=== PATIENT | female | born 1950 | race Caucasian/White ===

== ENCOUNTER → 2019-02-09 08:45 | Outpatient (CLI) | payer MEDICARE, SELFPAY ==
[2019-02-09 09:35] LABS: Add Manual Diff / Slide Review NO; Basophils Absolute Auto 0 /uL (0-100); Basophils Percent Auto 0.8 % (0-2); Eosinophils Absolute Auto 100 /uL (0-450); Eosinophils Percent Auto 1.7 % (2-4); Hematocrit 40.5 % (36-46); Hemoglobin 13.7 g/dL (12.0-16.0); Lymphocytes Absolute Auto 800 /uL (1100-4500); Lymphocytes Percent Auto 18.9 % (25-40); Mean Corpuscular HGB Conc 33.9 % (30-36); Mean Corpuscular Volume 91.5 fL (80-100); Monocytes Absolute Auto 400 /uL (0-900); Monocytes Percent Auto 10.4 % (3-14); Neutrophils Absolute Auto 2900 /uL (1500-7000); Neutrophils Percent Auto 68.2 % (50-75); Platelet Count 184 X10^3/uL (150-400); Red Blood Cell Count 4.42 X10^6/uL (4.0-5.2); Red Cell Distribution Width 13.9 % (11.6-14.8); White Blood Cell Count 4.3 X10^3/uL (4.5-11.0)
[2019-02-09 09:46] LABS: Alanine Aminotransferase 18 IU/L (9-52); Albumin 4.2 g/dL (3.5-5.0); Albumin Globulin Ratio 1.5 (1.0-2.8); Alkaline Phosphatase 73 U/L (38-126); Aspartate Aminotransferase 21 IU/L (14-36); BUN Creatinine Ratio 26.7 (6-22); Bilirubin Total 0.6 mg/dL (0.2-1.3); Blood Urea Nitrogen 24 mg/dL (7-17); Calcium 9.5 mg/dL (8.4-10.2); Carbon Dioxide 29 mmol/L (22-32); Chloride 106 mmol/L (98-107); Cholesterol 200 mg/dL (140-199); Estimated Glomerular Filt Rate > 60.0 mL/min (>60); Globulin 2.8 g/dL (1.7-4.1); Glucose 88 mg/dL (80-110); HDL Cholesterol 52 mg/dL (40-60); HEMOLYSIS 15 (0-50); LDL Cholesterol Calculated 131 mg/dL (<100); Potassium 4.1 mmol/L (3.4-5.1); Sodium 142 mmol/L (137-145); Triglycerides 84 mg/dL (35-150)
== END ==
PROVIDERS: Visit Provider Internal Medicine
DX: C50.111 Malignant neoplasm of central portion of right female breast (principal); H44.5 Degenerated conditions of globe; E66.9 Obesity, unspecified
CPT/HCPCS: 36415; 80053; 80061; 85025

== ENCOUNTER → 2019-02-23 14:03 | Outpatient (CLI) | payer MEDICARE, SELFPAY | PROVIDERS: PCP Internal Medicine | DX: M85.851 Other specified disorders of bone density and structure, right thigh (principal); C50.919 Malignant neoplasm of unspecified site of unspecified female breast; Z79.811 Long term (current) use of aromatase inhibitors; Z82.62 Family history of osteoporosis | CPT/HCPCS: 77080 ==

== ENCOUNTER 2019-03-14 10:27 | Day surgery (SDC) | payer MEDICARE, SELFPAY ==
[2019-03-14 11:03] VITALS: BP 132/81; PULSE 58; RESP 16; TEMP 36.7; O2SAT 97; BMI 31.0
--- NOTE | 2019-03-14 11:22 | PM.HP.1 ---
History of Present Illness Chief complaint: [id number] Patient History Social History household members: spouse Family & Social History Social History: household members spouse Meds Home Medications Medication Instructions Recorded Confirmed Type Combigan 01/30/19 History anastrozole 1 mg PO DAILY 01/30/19 03/14/19 History travoprost [Travatan Z] 01/30/19 History Allergies Allergy/AdvReac Type Severity Reaction Status Date / Time No Known Drug Allergies Allergy Verified 03/14/19 10:52 Review of Systems Review of Systems All systems reviewed & are unremarkable except as noted in HPI and below Exam Vital Signs (past 8 hours): - 03/14/19 11:03 Temperature 98.1 F Pulse Rate 58 L Respiratory Rate 16 Blood Pressure 132/81 Pulse Oximetry 97 Oxygen Delivery Method Room Air Narrative Exam Narrative: Awake alert and oriented x3, pupils reactive, lungs clear, heart regular rate rhythm, abdomen nondistended, no lower extremity edema Assessment & Plan Assessment & Plan narrative: Colon cancer screening, colonoscopy
[2019-03-14] MEDS: SODIUM CHLORIDE 0.9% 1,000 ML 200 ML IV (11:30)
[2019-03-14] MEDS: MIDAZOLAM 5 MG/5 ML VIAL IV (12:27)
[2019-03-14] MEDS: fentaNYL 250 MCG/5 ML INJ IV (12:28)
[2019-03-14 12:34] VITALS: BP 130/72; PULSE 65; RESP 14; TEMP 36.3; O2SAT 99
[2019-03-14 12:39] VITALS: BP 139/67; PULSE 62; RESP 20; O2SAT 97
--- NOTE | 2019-03-14 12:40 | P.OP.ENDO_ITS ---
Operative Date/Time/Diagnoses Date of procedure: 03/14/19 Procedure & Clinicians Study performed: Colonoscopy Moderate conscious sedation was administered by the endoscopy nurse and supervised by the endoscopist. The following parameters were monitored: Oxygen saturation, heart rate, blood pressure, and response to care. Sedation: 3 mg midazolam, 50 micro g fentanyl Indications: Colon cancer screening. Last colonoscopy done in 2008 Procedure Notes Procedure in detail: Prior to the procedure, history and physical was performed, and patient medications and allergies were reviewed. Preprocedure nursing history and assessment was reviewed. Patient identification and proposed procedure were verified by the physician and nurse in the procedure room. The p hysical status of the patient was reassessed after the procedure. After informed consent was obtained including risks, benefits, and alternatives, the scope was passed under direct vision. Throughout the procedure, the patient's blood pressure, pulse, and oxygen saturations were monitored continuously. The colonoscope was introduced through the anus and advanced to the cecum as identified by the appendiceal orifice and ileocecal valve. The patient tolerated the procedure well. Bowel prep was deemed adequate to detect polyps greater than 5 mm. DARRIN and perianal examinations were unremarkable. Retroflexion in the rectum revealed grade 2 internal hemorrhoids The entire examined colon was normal appearing. Impression: Internal hemorrhoids Colon otherwise normal-appearing No specimens taken Sedation minutes: 15 Complications: none Plan for aftercare: Repeat colonoscopy in 10 years Resume home medications Resume previous diet Discharge home with escort
[2019-03-14 12:43] VITALS: BP 139/76; PULSE 61; RESP 18; TEMP 36.8; O2SAT 97
[2019-03-14 13:00] VITALS: BP 130/70; PULSE 66; RESP 16; TEMP 36.6; O2SAT 99
== END 2019-03-14 13:16 | disposition home or self-care (01) ==
PROVIDERS: PCP Internal Medicine; Visit Provider Internal Medicine
PROC: 0DJD8ZZ Inspection of Lower Intestinal Tract, Via Natural or Artificial Opening Endoscopic (ICD-10-PCS; CPT 45378; principal; 2019-03-14 11:30)
DX: Z12.11 Encounter for screening for malignant neoplasm of colon (principal); K64.1 Second degree hemorrhoids
CPT/HCPCS: G0121; J2250; J3010

== ENCOUNTER → 2019-03-26 15:19 | Outpatient (CLI) | payer MEDICARE, SELFPAY ==
--- NOTE | 2019-03-26 | DI.MG.S_ITS ---
BILATERAL DIGITAL SCREENING MAMMOGRAM 3D/2D WITH CAD POST LUMPECTOMY: 03/26/2019 CLINICAL: Routine screening. Personal history of right breast cancer. Comparison is made to exams dated: 03/24/2018 mammogram, 03/28/2017 mammogram, and 08/23/2016 mammogram - [facility]. The tissue of both breasts is heterogeneously dense. This may lower the sensitivity of mammography. Current study was also evaluated with a Computer Aided Detection (CAD) system. There are benign post operative findings in the right breast. No significant masses, calcifications, or other findings are seen in either breast. There has been no significant interval change. IMPRESSION: There is no mammographic evidence of malignancy. A 1 year screening mammogram is recommended. This exam was interpreted at Station ID: [id number]. NOTE: For mammograms, a report in lay terms will be sent to the patient. Approximately 15% of breast malignancies will not be visualized mammographically. In the management of a palpable breast mass, a negative mammogram must not discourage biopsy of a clinically suspicious lesion. Electronically Signed By: Madhu bonilla/haider:03/26/2019 16:33:34 copy to: LOVE HERRMANN letter sent: Normal Exam ACR BI-RADS Category 2: Benign Finding(s) 3342F
== END ==
PROVIDERS: PCP Internal Medicine; Visit Provider Internal Medicine
DX: Z12.31 Encounter for screening mammogram for malignant neoplasm of breast (principal); Z85.3 Personal history of malignant neoplasm of breast
CPT/HCPCS: 77063; 77067

== ENCOUNTER → 2020-03-07 08:09 | Outpatient (CLI) | payer MEDICARE, SELFPAY ==
--- NOTE | 2020-03-07 08:11 | DI.MG.S_ITS ---
BILATERAL DIGITAL DIAGNOSTIC MAMMOGRAM 3D/2D POST LUMPECTOMY: 03/07/2020 CLINICAL: Breast cancer. Comparison is made to exams dated: 03/26/2019 mammogram - [facility], 03/24/2018 mammogram, and 08/17/2016 mammogram - [facility]. The tissue of both breasts is heterogeneously dense. This may lower the sensitivity of mammography. The patient is status post lumpectomy right breast at 3 o'clock with associated distortion and density from known seroma and scarring. There are surgical clips in the right axilla. No significant masses, calcifications, or other findings are seen in either breast. IMPRESSION: INCOMPLETE: NEEDS ADDITIONAL IMAGING EVALUATION There is no abnormality seen in the right breast to correspond with the bloody discharge from the nipple, however, ultrasound is recommended. This was performed immediately following this exam. Surgical changes to the right breast are stable. Left breast is stable compared to prior. This exam was interpreted at Station ID: [id number]. NOTE: For mammograms, a report in lay terms will be sent to the patient. Approximately 15% of breast malignancies will not be visualized mammographically. In the management of a palpable breast mass, a negative mammogram must not discourage biopsy of a clinically suspicious lesion. Electronically Signed By: Sirena maurer/:03/07/2020 09:06:12 ACR BI-RADS Category 0: Incomplete 3340F
--- NOTE | 2020-03-07 08:11 | DI.US.S_ITS ---
LIMITED ULTRASOUND OF RIGHT BREAST: 03/07/2020 CLINICAL: Hx of bloody discharge 6 months ago right breast. Comparison is made to exams dated: 03/26/2019 mammogram - [facility], 03/24/2018 mammogram, 04/08/2017 ultrasound, 03/28/2017 mammogram, and 11/05/2016 ultrasound - [facility]. Real-time ultrasound of the right breast retroareolar was performed. Landry scale images of the real-time examination were reviewed. No significant abnormalities were seen sonographically in the right breast. Specifically, no finding to explain the patient's bloody discharge. IMPRESSION: INCOMPLETE: NEEDS ADDITIONAL IMAGING EVALUATION There is no abnormality seen in the right breast to correspond with the bloody discharge from the nipple, however, breast MRI is recommended. Findings and recommendations were conveyed to the patient at time of exam. This exam was interpreted at Station ID: [id number]. Electronically Signed By: Sirena maurer/:03/07/2020 10:43:00 letter sent: Need MRI Ultrasound BI-RADS: 0 Indeterminate
== END ==
PROVIDERS: PCP Internal Medicine; Referring Provider Internal Medicine Hematology & Oncology; Visit Provider Internal Medicine Hematology & Oncology
DX: R92.8 Other abnormal and inconclusive findings on diagnostic imaging of breast (principal); N64.52 Nipple discharge; C50.911 Malignant neoplasm of unspecified site of right female breast; Z17.0 Estrogen receptor positive status [ER+]; Z79.811 Long term (current) use of aromatase inhibitors
CPT/HCPCS: 76642; 77066; G0279

== ENCOUNTER → 2020-03-25 11:01 | Outpatient (CLI) | payer MEDICARE, SELFPAY ==
--- NOTE | 2020-03-25 11:02 | DI.MRI.S_ITS ---
BREAST MRI OF BOTH BREASTS- POST LUMPECTOMY: 03/25/2020 CLINICAL: Right breast nipple discharge. Breast Cancer. TECHNIQUE: The patient was placed prone in a dedicated breast imaging coil. Precontrast axial STIR and 3D FLASH without fat saturation sequences were obtained. Both before and after bolus injection of contrast, sequential 1-minute axial 3D FLASH with fat saturation sequences for 3 time points, with subtraction images and maximum intensity projections (MIP's) generated. Delayed sagittal FLASH images with fat saturation were also obtained. Computer-aided detection, including computer algorithm analysis of MRI image data for lesion detection and characterization, pharmacokinetic analysis, with further physician review for interpretation, was performed. COMPARISON: [facility], , MM DIAGNOSTIC MAMMO BI, 03/07/2020, 8:36. [facility], , MM SCREENING MAMMO BI, 03/26/2019, 15:48. Outside Facility, , MM DIAGNOSTIC MAMMO BILAT 2D, 03/24/2018, 14:01. Outside Facility, RG, US AXILLA, 11/05/2016, 9:29. Outside Facility, RG, MRI BREAST BILATERAL, 09/15/2016, 14:05. Outside Facility, RG, US RIGHT BREAST, 04/08/2017, 11:15. [facility], , US BREAST RT LIMITED, 03/07/2020, 9:09. FINDINGS: Image quality: Excellent. There is minimal background parenchymal enhancement. There is heterogeneously dense fibroglandular tissue bilaterally. Right breast: There are expected postsurgical changes involving the medial right breast with associated surgical scarring/architectural distortion. A few foci of internal susceptibility artifact compatible with postsurgical change. Mild skin thickening of the anterior and medial right breast without associated enhancement likely related to posttreatment changes. There is a bilobed T1 hyperintense, T2 hyperintense fluid collection identified in the posterior depth of the medial right breast measuring approximately 2.6 cm in AP dimension, 2.6 cm in craniocaudal dimension, and approximately 1.7 cm in transverse dimension. There is layering fluid fluid levels in the dependent portions, compatible with layering debris. There is thin rim enhancement. Otherwise, there are no suspicious mass lesions, non-mass enhancement, or other suspicious abnormalities identified in the remainder of the right breast. No axillary or internal mammary chain adenopathy. Left breast: No mass, non-mass enhancement, or architectural distortion, or other suspicious abnormalities identified in the left breast. No skin or nipple abnormalities. No axillary or internal mammary chain adenopathy. Miscellaneous: Visualized portions of the chest and upper abdomen appear unremarkable. Normal bone marrow signal intensity. IMPRESSION: 1. Expected postsurgical and posttreatment changes of the right breast with associated postsurgical scarring. No MRI evidence for malignancy or abnormality to explain patient's history of bloody nipple discharge. Recommend continued clinical surveillance for persistent or worsening symptoms. 2. There is a 2.6 x 2.6 x 1.7 cm postoperative fluid collection/seroma identified in the posterior depth of the medial right breast. 3. No MRI evidence for malignancy in the left breast. COMMENT: The imaging literature indicates that a negative contrast breast MRI examination has a high sensitivity and a moderate specificity for detecting and excluding invasive carcinomas to a detection threshold of 3-5 mm; nonetheless, appropriate clinical and mammographic follow-up are recommended. MRI is not sensitive for detecting DCIS (ductal carcinoma in situ) and may not detect large invasive neoplasms that show only minimal enhancement such as mucinous carcinoma. If there are suspicious calcifications or clinically worrisome palpable masses, then biopsy should still be considered. Invasive neoplasms can be hidden by co-existent and benign enhancement caused by mastitis, hormone therapy effects, radiation therapy, , and recent biopsy or surgery. False positive examinations can occur in a number of circumstances, including breasts that have recently been subject to invasive procedures and those that contain atypical ductal hyperplasia, hormonally stimulated glandular tissue, fat necrosis, or radial scars. This exam was interpreted at Station ID: [id number]. Electronically Signed By: Gamaliel Chang M.D. aty/:03/25/2020 12:55:02 letter sent: Normal Exam ACR BI-RADS Category 2: Benign Finding(s) 3342F
== END ==
PROVIDERS: PCP Internal Medicine; Referring Provider Internal Medicine Hematology & Oncology; Visit Provider Internal Medicine Hematology & Oncology
DX: N64.52 Nipple discharge (principal); C50.911 Malignant neoplasm of unspecified site of right female breast; L76.34 Postprocedural seroma of skin and subcutaneous tissue following other procedure; Z17.0 Estrogen receptor positive status [ER+]; Z79.811 Long term (current) use of aromatase inhibitors
CPT/HCPCS: 77049

== ENCOUNTER → 2021-03-18 10:57 | Outpatient (CLI) | payer MEDICARE, SELFPAY ==
--- NOTE | 2021-03-18 10:59 | DI.MG.S_ITS ---
BILATERAL DIGITAL SCREENING MAMMOGRAM 3D/2D WITH CAD POST LUMPECTOMY: 03/18/2021 CLINICAL: Routine screening. Personal history of right breast cancer. Comparison is made to exams dated: 03/25/2020 breast MRI, 03/07/2020 mammogram - [facility], and 03/24/2018 mammogram - [facility]. The tissue of both breasts is heterogeneously dense. This may lower the sensitivity of mammography. Current study was also evaluated with a Computer Aided Detection (CAD) system. There are benign post operative findings in the right breast. No significant masses, calcifications, or other findings are seen in either breast. There has been no significant interval change. IMPRESSION: BENIGN There is no mammographic evidence of malignancy. A 1 year screening mammogram is recommended. This exam was interpreted at Station ID: [id number]. NOTE: For mammograms, a report in lay terms will be sent to the patient. Approximately 15% of breast malignancies will not be visualized mammographically. In the management of a palpable breast mass, a negative mammogram must not discourage biopsy of a clinically suspicious lesion. Electronically Signed By: Madhu bonilla/haider:03/18/2021 14:35:35 copy to: DINORA CASTILLO letter sent: Normal Exam ACR BI-RADS Category 2: Benign Finding(s) 3342F
== END ==
PROVIDERS: PCP Internal Medicine; Referring Provider Internal Medicine; Visit Provider Internal Medicine
DX: Z12.31 Encounter for screening mammogram for malignant neoplasm of breast (principal); C50.911 Malignant neoplasm of unspecified site of right female breast
CPT/HCPCS: 77063; 77067

== ENCOUNTER → 2022-03-19 10:10 | Outpatient (CLI) | payer MEDICARE, SELFPAY ==
--- NOTE | 2022-03-19 10:11 | DI.MG.S_ITS ---
BILATERAL DIGITAL SCREENING MAMMOGRAM 3D/2D WITH CAD POST LUMPECTOMY: 03/19/2022 CLINICAL: Routine screening. Personal history of right breast cancer. Comparison is made to exams dated: 03/18/2021 mammogram, 03/25/2020 breast MRI, 03/07/2020 mammogram, and 03/26/2019 mammogram - [facility]. The tissue of both breasts is heterogeneously dense. This may lower the sensitivity of mammography. Current study was also evaluated with a Computer Aided Detection (CAD) system. There are benign post operative findings in the right breast. No significant masses, calcifications, or other findings are seen in either breast. There has been no significant interval change. IMPRESSION: BENIGN There is no mammographic evidence of malignancy. A 1 year screening mammogram is recommended. This exam was interpreted at Station ID: [id number]. NOTE: For mammograms, a report in lay terms will be sent to the patient. Approximately 15% of breast malignancies will not be visualized mammographically. In the management of a palpable breast mass, a negative mammogram must not discourage biopsy of a clinically suspicious lesion. Electronically Signed By: Sirena maurer/haider:03/19/2022 11:53:07 copy to: DINORA CASTILLO letter sent: Normal Exam ACR BI-RADS Category 2: Benign Finding(s) 3342F
== END ==
PROVIDERS: PCP Internal Medicine; Referring Provider Internal Medicine Hematology & Oncology; Visit Provider Internal Medicine Hematology & Oncology
DX: Z12.31 Encounter for screening mammogram for malignant neoplasm of breast (principal); Z85.3 Personal history of malignant neoplasm of breast
CPT/HCPCS: 77063; 77067

== ENCOUNTER → 2022-07-13 10:08 | Outpatient (CLI) | payer MEDICARE, SELFPAY | PROVIDERS: PCP Internal Medicine; Referring Provider Internal Medicine Hematology & Oncology; Visit Provider Internal Medicine Hematology & Oncology | DX: Z13.820 Encounter for screening for osteoporosis (principal); Z78.0 Asymptomatic menopausal state; M85.851 Other specified disorders of bone density and structure, right thigh; M85.852 Other specified disorders of bone density and structure, left thigh; C50.919 Malignant neoplasm of unspecified site of unspecified female breast | CPT/HCPCS: 77080; 77081 ==

== ENCOUNTER → 2022-07-13 10:34 | Outpatient (CLI) | payer MEDICARE, SELFPAY ==
[2022-07-13 11:33] LABS: Add Manual Diff / Slide Review NO; Basophils Absolute Auto 0 /uL (0-100); Basophils Percent Auto 1.1 % (0-2); Eosinophils Absolute Auto 0 /uL (0-450); Eosinophils Percent Auto 1.1 % (2-4); Hematocrit 40.2 % (36-46); Hemoglobin 13.8 g/dL (12.0-16.0); Lymphocytes Absolute Auto 1000 /uL (1100-4500); Lymphocytes Percent Auto 26.4 % (25-40); Mean Corpuscular HGB Conc 34.3 % (30-36); Mean Corpuscular Hemoglobin 31.3 PG (26-34); Mean Corpuscular Volume 91.1 fL (80-100); Monocytes Absolute Auto 400 /uL (0-900); Monocytes Percent Auto 10.5 % (3-14); Neutrophils Absolute Auto 2200 /uL (1500-7000); Neutrophils Percent Auto 60.9 % (50-75); Platelet Count 179 X10^3/uL (150-400); Red Blood Cell Count 4.41 X10^6/uL (4.0-5.2); Red Cell Distribution Width 13.7 % (11.6-14.8); White Blood Cell Count 3.6 X10^3/uL (4.5-11.0)
[2022-07-13 11:45] LABS: Alanine Aminotransferase 19 IU/L (<35); Albumin 4.1 g/dL (3.5-5.0); Albumin Globulin Ratio 1.3 (1.0-2.8); Alkaline Phosphatase 75 U/L (38-126); Aspartate Aminotransferase 23 IU/L (14-36); Bilirubin Total 0.5 mg/dL (0.2-1.3); Blood Urea Nitrogen 25 mg/dL (7-17); Calcium 9.2 mg/dL (8.4-10.2); Carbon Dioxide 29 mmol/L (22-32); Chloride 104 mmol/L (98-107); Estimated Glomerular Filt Rate > 60 mL/min (>60); Globulin 3.1 g/dL (1.7-4.1); Glucose 76 mg/dL (80-110); HEMOLYSIS < 15 (0-50); Potassium 4.3 mmol/L (3.4-5.1); Sodium 140 mmol/L (137-145); Total Protein 7.2 g/dL (6.3-8.2)
== END ==
PROVIDERS: Internal Medicine Hematology & Oncology; PCP Internal Medicine; Referring Provider Orthopaedic Surgery; Visit Provider Orthopaedic Surgery
DX: R73.9 Hyperglycemia, unspecified (principal); Z01.818 Encounter for other preprocedural examination; Z01.812 Encounter for preprocedural laboratory examination; N39.0 Urinary tract infection, site not specified; C50.919 Malignant neoplasm of unspecified site of unspecified female breast; M81.0 Age-related osteoporosis without current pathological fracture
CPT/HCPCS: 36415; 80053; 85025; 93005

== ENCOUNTER 2022-12-04 21:25 | Emergency (ER) | payer MEDICARE, SELFPAY ==
[2022-12-04 21:51] VITALS: BP 175/92; PULSE 68; RESP 16; TEMP 36.9; O2SAT 97; BMI 32.8
--- NOTE | 2022-12-04 21:57 | PC.NURSE ---
After working out and lifting weights tuesday is having spasms in left side of back, up into her neck and base of head. Tried one regular strength tylenol this afternoon. Reports similar episode years ago but doesn't remember how it was resolved.
[2022-12-04 22:02] VITALS: PULSE 66; O2SAT 98
[2022-12-04 22:30] VITALS: BP 171/81; PULSE 72; O2SAT 98
[2022-12-04 23:00] VITALS: BP 186/81; PULSE 65; RESP 14; O2SAT 97
[2022-12-04 23:30] VITALS: BP 193/88; PULSE 69; RESP 16; O2SAT 96
[2022-12-05] VITALS (11 sets, daily range): BP systolic 146–196; BP diastolic 62–88; PULSE 66–80; O2SAT 88–99
[2022-12-05] MEDS: diazePAM 5 MG TABLET 10 MG PO (00:51)
--- NOTE | 2022-12-05 01:28 | ED_ITS ---
HPI - Back Pain/Injury General Chief Complaint: Back Pain/Injury Stated Complaint: neck/shoulder/back spasms x2 days Time Seen by Provider: 12/05/22 00:48 Source: patient Mode of arrival: Ambulatory Limitations: no limitations History of Present Illness HPI Narrative: This is a 72-year-old female history of breast cancer on aromatase inhibitor and glaucoma with complaint left shoulder/trapezius and arm pain has been present for the past 2 days. Patient states pain radiates from the trapezius is up to the neck and little bit down into the back. Feels tight and. It radiates down her arm towards her elbow but not beyond. She denies any numbness or tingling. No weakness. She states movement does seem too bothered. She is more comfortable sitting forward. Patient states currently pain is 3/10 was 7/10 earlier today. She would Tylenol 1:30 p.m. to 1823. She would not taken anything else since then. She states similar symptoms about 10 or 15 years ago but not since then. She does go to [employer] class and was lifting weights and doing weightlifting with light weights. She states this is a normal activity for her she did not do any new weight changes or different movements. She did not recall any particular twinges or injuries otherwise. She did have this class on Tuesday in the morning. Patient denies any radiation into her chest. She denies shortness of breath. She denies nausea or vomiting. She states she does get migraines she states this is the same. She does not have a ny photophobia. She denies numbness or tingling or weakness. She denies any abdominal back or flank pain in the lower part of the body. No diarrhea constipation. No urinary symptoms. Patient notes she had a knee replacement in July. She states she is on aromatase inhibitor for her breast cancer for total of 7 years instead of the usual 5. No known drug allergies. No tobacco, denies alcohol or illicit. She is accompanied by her . Patient state he did massage her neck and shoulders and this was helpful. Related Data Home Medications Medication Instructions Recorded Confirmed travoprost 0.004 % eye drops 1 drp DAILY 01/30/19 07/19/22 (Travatan Z) timolol 0.5 % eye drops 0.5 % ophthalmic (eye) DAILY 09/12/19 07/19/22 cyclosporine 0.05 % eye drops in a 0.05 drp BID 06/30/20 07/19/22 dropperette (Restasis) ascorbic acid (vitamin C) 500 mg 500 mg PO DAILY 01/18/22 07/19/22 capsule,extended release (Vitamin C) calcium carbonate 600 mg-vitamin 1 tab DAILY 01/18/22 07/19/22 D3 5 mcg (200 unit) tablet glucosamine sulf dipot 1 cap PO DAILY 01/18/22 07/19/22 chlr,msm,chond 550 mg-C 30 mg-denny 1 mg capsule (Glucosamine Chondroitin) multivit with 1 tab PO DAILY 01/18/22 07/19/22 dayyqrah-imxq-IE-lutein 8 mg iron-400 mcg-300 mcg tablet (Multivitamin Women 50 Plus) omega-3 fatty acids 1,000 mg PO DAILY 01/18/22 07/19/22 Previous Rx's Medication Instructions Recorded anastrozole 1 mg tablet 1 mg PO DAILY #90 tabs 03/08/22 diazepam 5 mg tablet (Valium) 5 mg PO TID PRN muscle spasm #10 12/05/22 tabs tramadol 50 mg tablet 50 mg PO TID PRN pain #10 tabs 12/05/22 Allergies Allergy/AdvReac Type Severity Reaction Status Date / Time No Known Drug Allergies Allergy Verified 03/14/19 10:52 Review of Systems Review of Systems ROS Unobtainable: All systems reviewed & are unremarkable except as noted in HPI and below Patient History Social History household members: spouse Smoking Status: Never smoker Smoking Status: Never smoker Substance Use Type: does not use Exam Narrative Exam Narrative: GEN: well nourished, well appearing female, alert and oriented x 3, patient appears to be in htdm-hl-exkjhbju distress. HEENT: Atraumatic, pupils are equal round reactive to light, extraocular movements are intact, nares are clear, Throat is clear without any exudates, erythema, tonsillar enlargement or uvular deviation HEART: Regular rate and rhythm without murmur, clicks, rubs. No carotid bruits, pulses are equal in upper and lower extremities LUNGS:Lungs clear to auscultation, no wheezes, rales, crackles, chest moves symmetrically ABD:bowel sounds normal, soft, non-tender, no guarding, rebound, rigidity, no masses noted, no hepatosplenomegaly :No CVA tenderness MSCL: Non-tender bony palpation, patient does have quite a bit of tissue tightness on the paraspinal and trapezius left greater than right but is present bilaterally. Patient is tender with palpation in the trapezius area but no clear trigger point appreciated. She can move through full range of motion but is uncomfortable. [employer] Commanding [employer] are equal bilaterally. Normal push-pull., no muscle atrophy, muscles strength 5/5 upper and lower extremities, full range of motion, normal gait NEURO:CN 2-12 intact, sensation normal SKIN: No rash, erythema or other skin changes. Initial Vital Signs Initial Vital Signs: Vital Signs Temperature 98.4 F 12/04/22 21:51 Pulse Rate 68 12/04/22 21:51 Respiratory Rate 16 12/04/22 21:51 Blood Pressure 175/92 H 12/04/22 21:51 Pulse Oximetry 97 12/04/22 21:51 Oxygen Delivery Method 12/04/22 21:51 Course Orders Ordered: ED Orders 12/05/22 01:43 CT head/brain wo con Stat XR chest 1V Stat EKG-12 Lead Stat 12/05/22 02:05 Complete Blood Count AUTO DIFF Stat Comprehensive Metabolic Panel Stat Lipase Stat NT-proBNP (BNP-Adult 18+) Stat Partial Thromboplastin Time Stat Prothrombin Time INR Stat Troponin & CK Cardiac Panel Stat Discontinued Medications Diazepam (Diazepam 5 Mg Tablet) 10 mg PO NOW ONE Stop: 12/05/22 00:49 Last Admin: 12/05/22 00:51 Dose: 10 mg Documented By: LINDSAY Morphine Sulfate (Morphine 4 Mg/Ml Inj) 4 mg IV NOW ONE Stop: 12/05/22 01:44 Last Admin: 12/05/22 01:52 Dose: 4 mg Documented By: JASON Ondansetron HCl (Ondansetron 4 Mg/2 Ml Inj) 4 mg IV NOW ONE Stop: 12/05/22 01:44 Last Admin: 12/05/22 01:52 Dose: 4 mg Documented By: JASON Vital Signs Vital signs: Vital Signs - 8 hr 12/04/22 21:51 12/04/22 22:02 12/04/22 22:30 Temperature 98.4 F Pulse Rate 68 66 Respiratory Rate 16 Blood Pressure 175/92 H 171/81 H Pulse Oximetry 97 98 Oxygen Delivery Method Room Air 12/04/22 22:30 12/04/22 23:00 12/04/22 23:00 Temperature Pulse Rate 72 65 Respiratory Rate 14 Blood Pressure 186/81 H Pulse Oximetry 98 97 Oxygen Delivery Method 12/04/22 23:30 12/04/22 23:30 12/05/22 00:00 Temperature Pulse Rate 69 70 Respiratory Rate 16 Blood Pressure 193/88 H Pulse Oximetry 96 97 Oxygen Delivery Method 12/05/22 00:01 12/05/22 00:01 12/05/22 00:30 Temperature Pulse Rate 70 Respiratory Rate Blood Pressure 180/76 H 196/88 H Pulse Oximetry 97 Oxygen Delivery Method 12/05/22 00:30 12/05/22 01:00 12/05/22 01:10 Temperature Pulse Rate 72 71 72 Respiratory Rate Blood Pressure Pulse Oximetry 96 99 99 Oxygen Delivery Method 12/05/22 01:10 12/05/22 01:30 12/05/22 01:30 Temperature Pulse Rate 72 Respiratory Rate Blood Pressure 183/87 H 193/84 H Pulse Oximetry 98 Oxygen Delivery Method 12/05/22 02:01 12/05/22 02:17 12/05/22 02:17 Temperature Pulse Rate 80 67 Respiratory Rate Blood Pressure 146/67 H Pulse Oximetry 88 L 94 Oxygen Delivery Method 12/05/22 02:30 12/05/22 02:30 12/05/22 03:00 Temperature Pulse Rate 66 Respiratory Rate Blood Pressure 149/62 H 160/72 H Pulse Oximetry 95 Oxygen Delivery Method 12/05/22 03:00 12/05/22 03:30 12/05/22 03:30 Temperature Pulse Rate 69 70 Respiratory Rate Blood Pressure 165/74 H Pulse Oximetry 98 97 Oxygen Delivery Method MDM - Back Pain/Injury Lab Data 12/05/22 02:05 12/05/22 02:05 Labs: Lab Results 12/05/22 12/05/22 12/05/22 Range/Units 02:05 02:05 02:05 WBC 9.5 (4.5-11.0) X10^3/uL RBC 4.56 (4.0-5.2) X10^6/uL Hgb 13.7 (12.0-16.0) g/dL Hct 41.7 (36-46) % MCV 91.5 (80-100) fL MCH 30.1 (26-34) PG MCHC 33.0 (30-36) % RDW 13.4 (11.6-14.8) % Plt Count 216 (150-400) X10^3/uL Neut % (Auto) 81.2 H (50-75) % Lymph % (Auto) 8.6 L (25-40) % [place] % (Auto) 8.7 (3-14) % Eos % (Auto) 0.4 L (2-4) % Baso % (Auto) 1.1 (0-2) % Neut # (Auto) 7700 H (9876-5467) /uL Lymph # (Auto) 800 L (3308-9853) /uL [place] # (Auto) 800 (0-900) /uL Eos # (Auto) 0 (0-450) /uL Baso # (Auto) 100 (0-100) /uL PT 13.1 H (10.1-12.7) SECONDS INR 1.1 (0.9-1.3) APTT 31 (26-36) SECONDS Sodium 140 (137-145) mmol/L Potassium 3.8 (3.4-5.1) mmol/L Chloride 103 (98-107) mmol/L Carbon Dioxide 28 (22-32) mmol/L BUN 18 H (7-17) mg/dL Creatinine 0.84 (0.52-1.04) mg/dL Estimated GFR > 60 (>60) mL/min BUN/Creatinine Ratio 21.4 (6-22) Glucose 109 (80-110) mg/dL Calcium 9.3 (8.4-10.2) mg/dL Total Bilirubin 0.8 (0.2-1.3) mg/dL AST 24 (14-36) IU/L ALT 23 (<35) IU/L Alkaline Phosphatase 85 (38-126) U/L Total Creatine Kinase 65 (30-135) U/L CK-MB (CK-2) TNP CK-MB (CK-2) Rel Index TNP Troponin I < 0.012 (0.01-0.034) ng/mL NT-Pro-B Natriuret Pep (<125) pg/mL Total Protein 7.5 (6.3-8.2) g/dL Albumin 4.4 (3.5-5.0) g/dL Globulin 3.1 (1.7-4.1) g/dL Albumin/Globulin Ratio 1.4 (1.0-2.8) Lipase 42 (23-300) U/L 12/05/22 Range/Units 02:05 WBC (4.5-11.0) X10^3/uL RBC (4.0-5.2) X10^6/uL Hgb (12.0-16.0) g/dL Hct (36-46) % MCV (80-100) fL MCH (26-34) PG MCHC (30-36) % RDW (11.6-14.8) % Plt Count (150-400) X10^3/uL Neut % (Auto) (50-75) % Lymph % (Auto) (25-40) % [place] % (Auto) (3-14) % Eos % (Auto) (2-4) % Baso % (Auto) (0-2) % Neut # (Auto) (1569-0978) /uL Lymph # (Auto) (6947-1348) /uL [place] # (Auto) (0-900) /uL Eos # (Auto) (0-450) /uL Baso # (Auto) (0-100) /uL PT (10.1-12.7) SECONDS INR (0.9-1.3) APTT (26-36) SECONDS Sodium (137-145) mmol/L Potassium (3.4-5.1) mmol/L Chloride (98-107) mmol/L Carbon Dioxide (22-32) mmol/L BUN (7-17) mg/dL Creatinine (0.52-1.04) mg/dL Estimated GFR (>60) mL/min BUN/Creatinine Ratio (6-22) Glucose (80-110) mg/dL Calcium (8.4-10.2) mg/dL Total Bilirubin (0.2-1.3) mg/dL AST (14-36) IU/L ALT (<35) IU/L Alkaline Phosphatase (38-126) U/L Total Creatine Kinase (30-135) U/L CK-MB (CK-2) CK-MB (CK-2) Rel Index Troponin I (0.01-0.034) ng/mL NT-Pro-B Natriuret Pep 181 H (<125) pg/mL Total Protein (6.3-8.2) g/dL Albumin (3.5-5.0) g/dL Globulin (1.7-4.1) g/dL Albumin/Globulin Ratio (1.0-2.8) Lipase (23-300) U/L ECG Data Attestation: I personally reviewed and interpreted this ECG as follows: MDM Narrative Medical decision making narrative: 72-year-old female with complaint of neck shoulder and trapezius spasms for the past 2 days. Patient is quite tender but has radiation little bit down her arm and is hypertensive here in the department. Patient is uncomfortable with movement she would have a dose of Valium she would not had any other pain medications prior to arrival. Suspect this is more musculoskeletal but based on patient's age and hypertension do feel is appropriate to have cardiac evaluation as well. Discharge Plan Departure Patient Disposition: Home Clinical Impression: Muscle spasm of left shoulder area Instructions: DI for Muscle Spasm Activity Restrictions/Additional Instructions: Please follow-up with your physician if your symptoms are not resolving in the next week. Please continue Tylenol up to a 1000 mg every 6 hours. You can continue taking Alleve. You may take muscle relaxer 1 tablet every 8 hours as needed. This medication can make you sleepy do not drive, perform hazardous activities or make any major decisions while taking it. If needed you may take 1-2 tablets of pain medication This medication can make you sleepy do not drive, perform hazardous activities or make any major decisions while taking it. This medication will make you constipated please take a stool softener once to twice daily until stools are soft and regular. Prescription sent to [facility] in [place]. Please return for rapidly worsening symptoms new numbness, weakness loss of sensation, severe worsening headaches, new chest pain or shortness of breath, persistent vomiting or other new or concerning changes. Prescriptions: New diazepam [Valium] 5 mg tablet 5 mg PO TID PRN (Reason: muscle spasm) Qty: 10 0RF tramadol 50 mg tablet 50 mg PO TID PRN (Reason: pain) Qty: 10 0RF No Action travoprost [Travatan Z] 0.004 % Drops 1 drp DAILY timolol 0.5 % Drops 0.5 % OPHTHALMIC (EYE) DAILY cyclosporine [Restasis] 0.05 % Dropperette 0.05 drp BID calcium carbonate-vitamin D3 [Calcium + D] 600 mg-5 mcg (200 unit) Tablet 1 tab DAILY ascorbic acid (vitamin C) [Vitamin C] 500 mg Capsule, Extended Release 500 mg PO DAILY Fish Oil Capsule 1,000 mg PO DAILY Multivitamin Women 50 Plus 8 mg iron-400 mcg-300 mcg Tablet 1 tab PO DAILY Glucosamine Chondroitin 550-30-1 mg Capsule 1 cap PO DAILY anastrozole 1 mg Tablet 1 mg PO DAILY Qty: 90 3RF Referrals: Daysi Brand ARNP [Primary Care Provider] - Stand Alone Forms: Patient Portal/API
--- NOTE | 2022-12-05 01:43 | DI.RAD.S_ITS ---
PROCEDURE: XR CHEST 1V INDICATIONS: left arm pain, head ache, muscle spasm TECHNIQUE: One view of the chest was acquired. COMPARISON: None. FINDINGS: Surgical changes and devices: None. Lungs and pleura: Lungs are clear. No pleural effusions or pneumothorax. Mediastinum: Mediastinal contours appear normal. Heart size is normal. Bones and chest wall: No suspicious bony lesions. Overlying soft tissues appear unremarkable. IMPRESSION: No acute cardiopulmonary disease. No significant discrepancy with the shift supervisor rn radiology preliminary report. Dictated by: Segun Lyons M.D. on 12/05/2022 at 7:49 Approved by: Segun Lyons M.D. on 12/05/2022 at 7:49
--- NOTE | 2022-12-05 01:43 | DI.CT.S_ITS ---
PROCEDURE: CT HEAD/BRAIN WO CON INDICATIONS: delarosa, left arm pain TECHNIQUE: Noncontrast 4.5 mm thick angled axial sections acquired from the foramen magnum to the vertex, with coronal and sagittal reformats. For radiation dose reduction, the following was used: automated exposure control, adjustment of mA and/or kV according to patient size. COMPARISON: None. FINDINGS: Image quality: Excellent. CSF spaces: Basal cisterns are patent. No extra-axial fluid collections. The ventricles are symmetric in size and shape. There may be a 1.5 cm calcified extra-axial mass in the left frontal parietal area, likely a meningioma. Brain: No intracranial bleeds or masses. There is mild cerebral volume loss for age, with resultant ventricular and sulcal prominence. There are mild periventricular and deep white matter chronic small vessel ischemic changes. There is intracranial internal carotid artery atherosclerosis. Skull and face: Calvarium and visualized facial bones appear intact, without suspicious lesions. Hyperostosis frontalis. Sinuses: Visualized sinuses and mastoids are clear. IMPRESSION: 1. No acute intracranial abnormalities. 2. Cerebral volume loss and chronic microvascular ischemic changes. No significant discrepancy with the maintenance technician 3rd shift radiology preliminary report. Dictated by: Segun Lyons M.D. on 12/05/2022 at 7:46 Approved by: Segun Lyons M.D. on 12/05/2022 at 7:48
[2022-12-05] MEDS: ONDANSETRON 4 MG/2 ML INJ IV (01:52)
[2022-12-05] MEDS: MORPHINE 4 MG/ML INJ IV (01:52)
[2022-12-05 02:20] LABS: Add Manual Diff / Slide Review NO; Basophils Absolute Auto 100 /uL (0-100); Basophils Percent Auto 1.1 % (0-2); Eosinophils Absolute Auto 0 /uL (0-450); Eosinophils Percent Auto 0.4 % (2-4); Hematocrit 41.7 % (36-46); Hemoglobin 13.7 g/dL (12.0-16.0); Lymphocytes Absolute Auto 800 /uL (1100-4500); Lymphocytes Percent Auto 8.6 % (25-40); Mean Corpuscular Hemoglobin 30.1 PG (26-34); Mean Corpuscular Volume 91.5 fL (80-100); Monocytes Absolute Auto 800 /uL (0-900); Monocytes Percent Auto 8.7 % (3-14); Neutrophils Absolute Auto 7700 /uL (1500-7000); Neutrophils Percent Auto 81.2 % (50-75); Platelet Count 216 X10^3/uL (150-400); Red Blood Cell Count 4.56 X10^6/uL (4.0-5.2); Red Cell Distribution Width 13.4 % (11.6-14.8); White Blood Cell Count 9.5 X10^3/uL (4.5-11.0)
[2022-12-05 02:21] LABS: INR 1.1 (0.9-1.3); Prothrombin Time 13.1 SECONDS (10.1-12.7)
[2022-12-05 02:24] LABS: PTT Partial Thromboplastin Tim 31 SECONDS (26-36)
[2022-12-05 02:27] LABS: Alanine Aminotransferase 23 IU/L (<35); Albumin 4.4 g/dL (3.5-5.0); Albumin Globulin Ratio 1.4 (1.0-2.8); Alkaline Phosphatase 85 U/L (38-126); Aspartate Aminotransferase 24 IU/L (14-36); BUN Creatinine Ratio 21.4 (6-22); Bilirubin Total 0.8 mg/dL (0.2-1.3); Blood Urea Nitrogen 18 mg/dL (7-17); Calcium 9.3 mg/dL (8.4-10.2); Carbon Dioxide 28 mmol/L (22-32); Chloride 103 mmol/L (98-107); Creatine Kinase 65 U/L (30-135); Estimated Glomerular Filt Rate > 60 mL/min (>60); Globulin 3.1 g/dL (1.7-4.1); Glucose 109 mg/dL (80-110); HEMOLYSIS 17 (0-50); Lipase 42 U/L (23-300); Potassium 3.8 mmol/L (3.4-5.1); Sodium 140 mmol/L (137-145); Total Protein 7.5 g/dL (6.3-8.2)
[2022-12-05 02:35] LABS: NT-proBNP (BNP-Adult 18+) 181 pg/mL (<125)
[2022-12-05 02:39] LABS: Troponin I < 0.012 ng/mL (0.01-0.034)
== END 2022-12-05 03:49 | disposition home or self-care (01) ==
PROVIDERS: Emergency Provider Emergency Medicine; PCP Nurse Practitioner
DX: M62.830 Muscle spasm of back (principal); Z79.899 Other long term (current) drug therapy
CPT/HCPCS: 36415; 70450; 71045; 80053; 82550; 83690; 83880; 84484; 85025; 85610; 85730; 93005; 96374; 96375; 99284; J2270; J2405

== ENCOUNTER → 2023-03-21 07:47 | Outpatient (CLI) | payer MEDICARE, SELFPAY ==
--- NOTE | 2023-03-21 07:49 | DI.MG.S_ITS ---
BILATERAL DIGITAL SCREENING MAMMOGRAM 3D/2D WITH CAD POST LUMPECTOMY: 03/21/2023 CLINICAL: Routine screening. Personal history of right breast cancer. Comparison is made to exams dated: 03/19/2022 mammogram, 03/18/2021 mammogram, and 03/07/2020 mammogram - [facility]. Both breasts are heterogeneously dense, which may obscure small masses (category c / 51-75% glandular tissue). Current study was also evaluated with a Computer Aided Detection (CAD) system. There are benign post operative findings in the right breast. No significant masses, calcifications, or other findings are seen in either breast. There has been no significant interval change. IMPRESSION: BENIGN There is no mammographic evidence of malignancy. A 1 year screening mammogram is recommended. This exam was interpreted at Station ID: [id number]. NOTE: For mammograms, a report in lay terms will be sent to the patient. Approximately 15% of breast malignancies will not be visualized mammographically. In the management of a palpable breast mass, a negative mammogram must not discourage biopsy of a clinically suspicious lesion. Electronically Signed By: Kylah feliz/haider:03/21/2023 11:36:22 copy to: RAMANDEEP SKINNER letter sent: Normal Exam ACR BI-RADS Category 2: Benign Finding(s) 3342F
== END ==
PROVIDERS: PCP Nurse Practitioner; Referring Provider Internal Medicine Hematology & Oncology; Visit Provider Internal Medicine Hematology & Oncology
DX: Z12.31 Encounter for screening mammogram for malignant neoplasm of breast (principal); C50.911 Malignant neoplasm of unspecified site of right female breast; Z17.0 Estrogen receptor positive status [ER+]
CPT/HCPCS: 77063; 77067

== ENCOUNTER → 2023-03-23 08:02 | Outpatient (CLI) | payer MEDICARE, SELFPAY ==
[2023-03-23 09:52] LABS: Microalbumi Creatinin Ratio Ur 7.6 ug/mg CR (<30); Microalbumin Urine Random 0.8 mg/dL (0-1.6)
== END ==
PROVIDERS: PCP Nurse Practitioner; Referring Provider Nurse Practitioner; Visit Provider Nurse Practitioner
DX: E78.2 Mixed hyperlipidemia (principal); R03.0 Elevated blood-pressure reading, without diagnosis of hypertension
CPT/HCPCS: 82043; 82570

== ENCOUNTER → 2023-12-28 14:13 | Outpatient (CLI) | payer MEDICARE, SELFPAY ==
[2023-12-28 16:11] LABS: Appearance Urine UA CLEAR; Bilirubin Urine UA NEGATIVE (NEGATIVE); Color Urine UA YELLOW; Glucose Urine UA NEGATIVE (Negative); Ketones Urine UA NEGATIVE (NEGATIVE); Leukocyte Esterase Urine UA NEGATIVE (NEGATIVE); Nitrite Urine UA NEGATIVE (Negative); Occult Blood Urine UA NEGATIVE (Negative); Protein Urine UA NEGATIVE (Negative); Specific Gravity Urine UA 1.025 (1.000-1.035); Urobilinogen Urine UA 0.2 E.U./dL (0.2)
[2023-12-28 16:14] LABS: Add Manual Diff / Slide Review NO; Basophils Absolute Auto 100 /uL (0-100); Eosinophils Absolute Auto 100 /uL (0-450); Eosinophils Percent Auto 1.3 % (2-4); Hematocrit 40.6 % (36-46); Lymphocytes Absolute Auto 1400 /uL (1100-4500); Mean Corpuscular HGB Conc 34.4 % (30-36); Mean Corpuscular Hemoglobin 31.3 PG (26-34); Mean Corpuscular Volume 91.1 fL (80-100); Monocytes Absolute Auto 500 /uL (0-900); Monocytes Percent Auto 8.9 % (3-14); Neutrophils Absolute Auto 3500 /uL (1500-7000); Neutrophils Percent Auto 63.8 % (50-75); Platelet Count 200 X10^3/uL (150-400); Red Blood Cell Count 4.46 X10^6/uL (4.0-5.2); White Blood Cell Count 5.6 X10^3/uL (4.5-11.0)
[2023-12-28 16:17] LABS: Hemoglobin A1C% w Est Avg Glu 5.2 % (4.0-6.0); pH Urine UA 5.5 (4.5-8.0)
[2023-12-28 16:40] LABS: BUN Creatinine Ratio 26.5 (6-22); Blood Urea Nitrogen 27 mg/dL (7-17); Calcium 9.5 mg/dL (8.4-10.2); Carbon Dioxide 30 mmol/L (22-32); Chloride 107 mmol/L (98-107); Estimated Glomerular Filt Rate 59 mL/min (>60); Glucose 103 mg/dL (80-110); HEMOLYSIS < 15 (0-50); Potassium 4.2 mmol/L (3.4-5.1); Sodium 140 mmol/L (137-145)
[2023-12-28 16:50] LABS: Bacteria Urine None Seen; Culture Indicated Urine Cult Not Indicated; RBC Urine None Seen (0-5/HPF); Squamous Epithelial Cell Urine None Seen (0-5/HPF); Urine Volume 10mL (spun); WBC Urine 0-1/HPF (0-5/HPF)
== END ==
LOC: LAB 14:14
PROVIDERS: PCP Nurse Practitioner; Referring Provider Orthopaedic Surgery; Visit Provider Orthopaedic Surgery
DX: Z01.818 Encounter for other preprocedural examination; R73.9 Hyperglycemia, unspecified; Z01.812 Encounter for preprocedural laboratory examination; N39.0 Urinary tract infection, site not specified
CPT/HCPCS: 80048; 81001; 83036; 85025

== ENCOUNTER → 2023-12-29 09:41 | Outpatient (CLI) | payer MEDICARE, SELFPAY | PROVIDERS: PCP Nurse Practitioner; Referring Provider Orthopaedic Surgery; Visit Provider Orthopaedic Surgery | DX: Z01.818 Encounter for other preprocedural examination (principal) | CPT/HCPCS: 93005; 93010 ==

== ENCOUNTER 2024-04-16 22:52 | Emergency (ER) | payer MEDICARE, SELFPAY ==
[2024-04-16 22:54] VITALS: BP 155/75; PULSE 67; RESP 18; TEMP 36.5; O2SAT 97; BMI 31.9
--- NOTE | 2024-04-16 23:07 | DI.RAD.S_ITS ---
PROCEDURE: XR CHEST 1V INDICATIONS: chest pain TECHNIQUE: One view of the chest was acquired. COMPARISON: [facility], CR, XR CHEST 1V, 12/05/2022, 1:53. FINDINGS: Surgical changes and devices: None. Lungs and pleura: Low lung volumes. Possible left base scarring or atelectasis. No dense airspace disease. No pleural effusions. Mediastinum: Heart size is normal and unchanged Bones and chest wall: Degenerative findings IMPRESSION: Low lung volumes. Limited single view radiograph. No acute abnormality. Dictated by: Jono Chandler M.D. on 04/16/2024 at 23:24 Approved by: Jono Chandler M.D. on 04/16/2024 at 23:24
[2024-04-16] MEDS: SODIUM CHLORIDE 0.9% 1,000 ML 1000 ML IV (23:16)
[2024-04-16] MEDS: MECLIZINE HCL 12.5 MG TABLET 50 MG PO (23:16)
[2024-04-16] MEDS: ONDANSETRON 4 MG/2 ML INJ IV (23:16)
[2024-04-16 23:48] VITALS: BP 169/73; PULSE 63; RESP 18; O2SAT 98
[2024-04-17 00:01] LABS: Add Manual Diff / Slide Review NO; Basophils Absolute Auto 100 /uL (0-100); Basophils Percent Auto 0.8 % (0-2); Eosinophils Absolute Auto 0 /uL (0-450); Eosinophils Percent Auto 0.3 % (2-4); Hematocrit 36.7 % (36-46); Hemoglobin 12.6 g/dL (12.0-16.0); Lymphocytes Absolute Auto 700 /uL (1100-4500); Lymphocytes Percent Auto 9.5 % (25-40); Mean Corpuscular HGB Conc 34.2 % (30-36); Mean Corpuscular Hemoglobin 31.8 PG (26-34); Mean Corpuscular Volume 93.1 fL (80-100); Monocytes Absolute Auto 400 /uL (0-900); Monocytes Percent Auto 6.2 % (3-14); Neutrophils Absolute Auto 5700 /uL (1500-7000); Neutrophils Percent Auto 83.2 % (50-75); Platelet Count 211 X10^3/uL (150-400); Red Blood Cell Count 3.94 X10^6/uL (4.0-5.2); Red Cell Distribution Width 14.1 % (11.6-14.8); White Blood Cell Count 6.9 X10^3/uL (4.5-11.0)
[2024-04-17 00:09] LABS: INR 1.1 (0.9-1.3); Prothrombin Time 12.4 SECONDS (9.4-12.5)
[2024-04-17 00:11] LABS: PTT Partial Thromboplastin Tim 30 SECONDS (25.1-36.5)
[2024-04-17 00:18] LABS: Alanine Aminotransferase 22 IU/L (<35); Albumin 4.1 g/dL (3.5-5.0); Albumin Globulin Ratio 1.4 (1.0-2.8); Alkaline Phosphatase 92 U/L (38-126); Aspartate Aminotransferase 26 IU/L (14-36); BUN Creatinine Ratio 25.6 (6-22); Bilirubin Total 0.7 mg/dL (0.2-1.3); Blood Urea Nitrogen 23 mg/dL (7-17); Calcium 9.3 mg/dL (8.4-10.2); Carbon Dioxide 27 mmol/L (22-32); Chloride 108 mmol/L (98-107); Creatine Kinase 72 U/L (30-135); Estimated Glomerular Filt Rate > 60 mL/min (>60); Globulin 2.9 g/dL (1.7-4.1); Glucose 130 mg/dL (80-110); HEMOLYSIS < 15 (0-50); Lipase 47 U/L (23-300); Magnesium 1.4 mg/dL (1.6-2.3); Potassium 3.7 mmol/L (3.4-5.1); Sodium 141 mmol/L (137-145)
[2024-04-17 00:27] LABS: NT-proBNP (BNP-Adult 18+) 242 pg/mL (<125); Troponin I < 0.012 ng/mL (0.01-0.034)
--- NOTE | 2024-04-17 03:10 | ED_ITS ---
HPI - Dizziness General Chief Complaint: Dizziness Stated Complaint: high BP/V/vertigo Time Seen by Provider: 04/17/24 03:04 Source: patient Mode of arrival: Wheelchair History of Present Illness HPI Narrative: Patient is a 74-year-old female history of breast cancer finished 7 years of aromatase inhibitor yesterday history of vertigo presenting today with sudden onset dizziness nausea and vomiting. She reports that when she woke up this morning she was extremely dizzy she tried to get to the bathroom she needed assistance. Made her extremely dizzy and she threw up. She rested for most of the day but with any sort of movement sitting up turning her head or anything she got very dizzy. Around 930 this evening her took her blood pressure noted it was quite high and with her ongoing symptoms they came into the ED. No numbness tingling or weakness. No difficulty speaking. She reports that she is cancer free she spoke with her oncologist in March and was instructed to finish the aromatase inhibitor and then it would not be refilled. She reports that she has had vertigo for never quite this bad and she has not had it in awhile. Related Data Home Medications Medication Instructions Recorded Confirmed ascorbic acid (vitamin C) 500 mg 500 mg PO DAILY 01/18/22 02/02/23 capsule,extended release (Vitamin C) calcium carbonate 600 mg-vitamin 1 tab DAILY 01/18/22 02/02/23 D3 5 mcg (200 unit) tablet glucosamine sulf dipot 1 cap PO DAILY 01/18/22 02/02/23 chlr,msm,chond 550 mg-C 30 mg-denny 1 mg capsule (Glucosamine Chondroitin) phboqpvf-nalk-smxo 8 mg-folic 400 1 tab PO DAILY 01/18/22 02/02/23 mcg-K 50 mcg-lutein 300 mcg tablet (Multivitamin Women 50 Plus) omega-3 fatty acids 1,000 mg PO DAILY 01/18/22 02/02/23 cyclosporine 0.05 % eye drops in a 1 drp EYE-BOTH BID 02/02/23 02/02/23 dropperette (Restasis) xnhzamqf-djp- 250 mg-dha 90 1 cap PO DAILY 02/02/23 02/02/23 mg-epa 160 ku-gnry-uizd-zeax capsule (Ocuvite Adult 50 Plus) timolol 0.5 % eye drops 1 drp EYE-BOTH QAM 02/02/23 02/02/23 travoprost 0.004 % eye drops 1 drp EYE-BOTH QPM 02/02/23 02/02/23 (Travatan Z) Previous Rx's Medication Instructions Recorded anastrozole 1 mg tablet 1 mg PO DAILY #90 tabs 03/28/23 meclizine 25 mg tablet 25 mg PO TID PRN dizziness #10 tabs 04/17/24 ondansetron 4 mg disintegrating 4 mg PO Q8H PRN nausea and 04/17/24 tablet vomiting #10 tabs Allergies Allergy/AdvReac Type Severity Reaction Status Date / Time No Known Drug Allergies Allergy Verified 02/02/23 14:41 Patient History Medical History White coat syndrome with high blood pressure but without hypertension Social History household members: spouse Smoking Status: Never smoker Smoking Status: Never smoker Substance Use Type: does not use Exam Initial Vital Signs Initial Vital Signs: Vital Signs Temperature 97.7 F 04/16/24 22:54 Pulse Rate 67 04/16/24 22:54 Respiratory Rate 18 04/16/24 22:54 Blood Pressure 155/75 H 04/16/24 22:54 Pulse Oximetry 97 04/16/24 22:54 Oxygen Delivery Method Room Air 04/16/24 22:54 GENERAL: Alert pleasant 74-year-old female and in no acute distress. HEENT: Head atraumatic,EOMI, pupils reactive, no nystagmus face symmetric, moist mucous membranes CARDIOVASCULAR: Regular rate and rhythm without murmurs, rubs or gallops. RESPIRATORY: Breath sounds equal bilaterally, no wheezes rales or rhonchi. ABDOMEN: Soft, nontender. Normoactive bowel sounds all 4 quadrants. No guarding or rebound. EXTREMITIES: Normal range of motion, no clubbing or edema. Neurovascularly intact NEUROLOGICAL: Alert and oriented x4.Normal gait and speech. Cranial nerves II through XII grossly intact. Director Of Sustainability strength equal bilaterally SKIN: Warm, dry, no laceration, no petechiae, no rashes or lesions. Scores NIH Stroke Scale Level of Conciousness: Alert, keenly responsive Ask month/age: Answers both questions correctly. Open/close eyes, close hand: Performs both tasks correctly Best gaze horizontal: Normal Visual mendiola: No visual loss Facial palsy: Normal symetrical movement Left arm drift: No drift for full 10 sec Right arm drift: No drift for full 10 sec Left leg drift: No drift for full 5 sec Right leg drift: No drift for full 5 sec Limb ataxia: Absent Sensory on face/arms/legs: Normal, no sensory loss Best language: No aphasia, normal Dysarthria: Normal Extinction or inattention: No abnormality Total NIH Stroke scale score: 0 Course Orders Ordered: ED Orders 04/16/24 23:07 XR chest 1V Stat EKG-12 Lead Stat 04/16/24 23:40 Complete Blood Count AUTO DIFF Stat Comprehensive Metabolic Panel Stat Lipase Stat Magnesium Stat NT-proBNP (BNP-Adult 18+) Stat PTT Partial Thromboplastin Phillip Stat Prothrombin Time INR Stat Troponin & CK Cardiac Panel Stat Discontinued Medications Sodium Chloride (Normal Saline 0.9%) 1,000 mls @ 1,000 mls/hr IV BOLUS ONE Stop: 04/17/24 00:06 Last Infusion: 04/17/24 00:43 Dose: Infused Documented By: Admin: 04/16/24 23:16 Dose: 1,000 mls/hr Documented By: SOPHIA Meclizine HCl (Meclizine Hcl 12.5 Mg Tablet) 50 mg PO NOW ONE Stop: 04/16/24 23:09 Last Admin: 04/16/24 23:16 Dose: 50 mg Documented By: SOPHIA Ondansetron HCl (Ondansetron 4 Mg/2 Ml Inj) 4 mg IV NOW ONE Stop: 04/16/24 23:09 Last Admin: 04/16/24 23:16 Dose: 4 mg Documented By: SOPHIA Vital Signs Vital signs: Vital Signs - 8 hr 04/16/24 23:48 04/17/24 03:24 Pulse Rate 63 68 Respiratory Rate 18 18 Blood Pressure 169/73 H 145/74 H Pulse Oximetry 98 98 Oxygen Delivery Method Room Air Room Air MDM - Dizziness Lab Data 04/16/24 23:40 04/16/24 23:40 Labs: Lab Results 04/16/24 Range/Units 23:40 WBC 6.9 (4.5-11.0) X10^3/uL RBC 3.94 L (4.0-5.2) X10^6/uL Hgb 12.6 (12.0-16.0) g/dL Hct 36.7 (36-46) % MCV 93.1 (80-100) fL MCH 31.8 (26-34) PG MCHC 34.2 (30-36) % RDW 14.1 (11.6-14.8) % Plt Count 211 (150-400) X10^3/uL Neut % (Auto) 83.2 H (50-75) % Lymph % (Auto) 9.5 L (25-40) % [facility] % (Auto) 6.2 (3-14) % Eos % (Auto) 0.3 L (2-4) % Baso % (Auto) 0.8 (0-2) % Neut # (Auto) 5700 (2618-3447) /uL Lymph # (Auto) 700 L (2412-5442) /uL [facility] [place] # (Auto) 400 (0-900) /uL Eos # (Auto) 0 (0-450) /uL Baso # (Auto) 100 (0-100) /uL PT 12.4 (9.4-12.5) SECONDS INR 1.1 (0.9-1.3) APTT 30 (25.1-36.5) SECONDS Sodium 141 (137-145) mmol/L Potassium 3.7 (3.4-5.1) mmol/L Chloride 108 H (98-107) mmol/L Carbon Dioxide 27 (22-32) mmol/L BUN 23 H (7-17) mg/dL Creatinine 0.90 (0.52-1.04) mg/dL Estimated GFR > 60 (>60) mL/min BUN/Creatinine Ratio 25.6 H (6-22) Glucose 130 H (80-110) mg/dL Calcium 9.3 (8.4-10.2) mg/dL Magnesium 1.4 L (1.6-2.3) mg/dL Total Bilirubin 0.7 (0.2-1.3) mg/dL AST 26 (14-36) IU/L ALT 22 (<35) IU/L Alkaline Phosphatase 92 (38-126) U/L Total Creatine Kinase 72 (30-135) U/L Troponin I < 0.012 (0.01-0.034) ng/mL NT-Pro-B Natriuret Pep 242 H (<125) pg/mL Total Protein 7.0 (6.3-8.2) g/dL Albumin 4.1 (3.5-5.0) g/dL Globulin 2.9 (1.7-4.1) g/dL Albumin/Globulin Ratio 1.4 (1.0-2.8) Lipase 47 (23-300) U/L Imaging Data Chest x-ray: Radiologist's Impression: PROCEDURE: XR CHEST 1V INDICATIONS: chest pain TECHNIQUE: One view of the chest was acquired. COMPARISON: [facility], , XR CHEST 1V, 12/05/2022, 1:53. FINDINGS: Surgical changes and devices: None. Lungs and pleura: Low lung volumes. Possible left base scarring or atelectasis. No dense airspace disease. No pleural effusions. Mediastinum: Heart size is normal and unchanged Bones and chest wall: Degenerative findings IMPRESSION: Low lung volumes. Limited single view radiograph. No acute abnormality. Dictated by: Jono Chandler M.D. on 04/16/2024 at 23:24 ECG Data Attestation: I personally reviewed and interpreted this ECG as follows: Prior ECG tracings: available for review Interpretation: Sinus rhythm rate 60 ND interval 162 QRS [address] changes no T-wave inversions MDM Narrative Medical decision making narrative: Patient is a 74-year-old female history of vertigo and wrist cancer presenting today with vertigo. She also reports elevated blood pressure home as well. On exam she has no focal deficits NIH stroke scale of 0 Blood work has been reviewed overall reassuring no leukocytosis anemia electrolyte abnormality CHER elevated troponin negative EKG reviewed no ischemic changes Chest x-ray reviewed no ischemic changes Patient received IV fluids Zofran and meclizine. Upon my evaluation she was able to sit up she has no nystagmus and she overall feels a lot better. She did have a head CT in 2022 which was within normal limits. Her cancer has been well controlled I do not suspect metastatic cancer she has a history of vertigo and her symptoms improved easily with meclizine Zofran and fluids. I did discuss with her and her continue she should consider CT. Discharge Plan Departure Patient Disposition: Home Clinical Impression: Vertigo Instructions: DI for Vertigo Activity Restrictions/Additional Instructions: *You have been diagnosed with vertigo *What to do: At this time hope that if symptoms improve. I recommend going home and sleeping now. *Continue to take medications as directed Meclizine 25-50 mg every 8 hours if needed for dizziness Zofran 4 mg every 8 hours for nausea or vomiting *Follow up with your primary care provider in 2-3 days or call [phone] *Return to ER if you should have increasing dizziness worsening headache numbness tingling weakness persistent vomiting or any new, worsening or concerning symptoms Prescriptions: New meclizine 25 mg tablet 25 mg PO TID PRN (Reason: dizziness) Qty: 10 0RF ondansetron 4 mg tablet,disintegrating 4 mg PO Q8H PRN (Reason: nausea and vomiting) Qty: 10 0RF No Action Ocuvite Adult 50 Plus 250 mg (90 mg-160 mg) capsule 1 cap PO DAILY calcium carbonate-vitamin D3 [Calcium + D] 600 mg-5 mcg (200 unit) Tablet 1 tab DAILY ascorbic acid (vitamin C) [Vitamin C] 500 mg Capsule, Extended Release 500 mg PO DAILY Fish Oil Capsule 1,000 mg PO DAILY Multivitamin Women 50 Plus 8 mg iron-400 mcg-300 mcg Tablet 1 tab PO DAILY Glucosamine Chondroitin 550-30-1 mg Capsule 1 cap PO DAILY travoprost [Travatan Z] 0.004 % drops 1 drp EYE-BOTH QPM timolol 0.5 % drops 1 drp EYE-BOTH QAM cyclosporine [Restasis] 0.05 % dropperette 1 drp EYE-BOTH BID anastrozole 1 mg Tablet 1 mg PO DAILY Qty: 90 3RF Referrals: Daysi Brand ARNP [Primary Care Provider] - Stand Alone Forms: Patient Portal/API
[2024-04-17 03:24] VITALS: BP 145/74; PULSE 68; RESP 18; O2SAT 98
== END 2024-04-17 03:30 | disposition home or self-care (01) ==
PROVIDERS: Emergency Provider Emergency Medicine; PCP Nurse Practitioner
DX: R42 Dizziness and giddiness (principal); R07.9 Chest pain, unspecified; R11.2 Nausea with vomiting, unspecified; Z79.899 Other long term (current) drug therapy
CPT/HCPCS: 36415; 71045; 80053; 82550; 83690; 83735; 83880; 84484; 85025; 85610; 85730; 96361; 96374; 99284; J2405

== ENCOUNTER → 2024-09-06 08:22 | Outpatient (CLI) | payer MEDICARE, SELFPAY ==
[2024-09-06 09:43] LABS: Hemoglobin A1C% w Est Avg Glu 5.4 % (4.0-6.0)
[2024-09-06 09:57] LABS: Cholesterol 230 mg/dL (140-199); HDL Cholesterol 60 mg/dL (40-60); LDL Cholesterol Calculated 149 mg/dL (<100); Triglycerides 106 mg/dL (35-150)
== END ==
PROVIDERS: PCP Family Medicine; Referring Provider Family Medicine; Visit Provider Family Medicine
DX: Z13.220 Encounter for screening for lipoid disorders (principal); Z13.1 Encounter for screening for diabetes mellitus
CPT/HCPCS: 36415; 80061; 83036

== ENCOUNTER 2024-12-09 18:49 | Emergency (ER) | payer MEDICARE, SELFPAY ==
[2024-12-09 18:51] VITALS: BP 137/80; PULSE 72; RESP 17; TEMP 36.7; O2SAT 99; BMI 31.4
--- NOTE | 2024-12-10 00:04 | ED_ITS ---
HPI - Neck Pain/Injury General Chief Complaint: Neck Pain/Injury Stated Complaint: severe muscle spasms, down neck, shoulder, back Time Seen by Provider: 12/10/24 00:04 Mode of arrival: Ambulatory History of Present Illness HPI Narrative: 74-year-old female with a past medical history of breast cancer glaucoma and muscle spasms comes into the ED from home for evaluation of muscle spasms of the neck/upper extremity states it is happens intermittently states that no specific cause states that she woke up ?wrong on and has had intermittent spasming since then, states exactly the same as when she had come in here a year or 2 ago for the same symptoms. Denies any other symptoms such as headache visual disturbances chest pain shortness breath fever chills nausea vomiting abdominal pain or any other GI/ symptoms time. Denies any numbness weakness tingling to bilateral upper extremities denies any trauma or falls. Not on any blood thinners Related Data Home Medications Medication Instructions Recorded Confirmed ascorbic acid (vitamin C) 500 mg 500 mg PO DAILY 01/18/22 09/05/24 capsule,extended release (Vitamin C) calcium 600 mg (as 1 tab DAILY 01/18/22 09/05/24 carbonate)-vitamin D3 5 mcg (200 unit) tablet glucosamine sulf dipot 1 cap PO DAILY 01/18/22 09/05/24 chlr,msm,chond 550 mg-C 30 mg-denny 1 mg capsule (Glucosamine Chondroitin) dxfrlmog-vxgm-avfc 8 mg-folic 400 1 tab PO DAILY 01/18/22 09/05/24 mcg-K 50 mcg-lutein 300 mcg tablet (Multivitamin Women 50 Plus) omega-3 fatty acids 1,000 mg PO DAILY 01/18/22 09/05/24 cyclosporine 0.05 % eye drops in a 1 drp EYE-BOTH BID 02/02/23 09/05/24 dropperette (Restasis) iwlxuaau-eel-kjleu1 250 mg-dha 90 1 cap PO DAILY 02/02/23 09/05/24 mg-epa 160 gn-ibig-ials-zeax capsule (Ocuvite Adult 50 Plus) timolol 0.5 % eye drops 1 drp EYE-BOTH QAM 02/02/23 09/05/24 travoprost 0.004 % eye drops 1 drp EYE-BOTH QPM 02/02/23 09/05/24 (Travatan Z) Previous Rx's Medication Instructions Recorded diazepam 5 mg tablet (Valium) 5 mg PO BEDTIME PRN muscle spasm 5 12/10/24 days #5 tabs prednisone 20 mg tablet 40 mg (2 x 20 mg) PO DAILY 5 days 12/10/24 #10 tabs Allergies Allergy/AdvReac Type Severity Reaction Status Date / Time No Known Drug Allergies Allergy Verified 12/09/24 18:51 Review of Systems Review of Systems Narrative: General: Denies fever, chills, weight loss HEENT: Denies headache, eye drainage, eye irritation, head trauma, sore throat, voice change Cardiovascular: Denies any chest pain, palpitations, shortness of breath, tachycardia Respiratory: Denies any shortness of breath, cough, wheeze, stridor GI/: Denies any abdominal pain, nausea, vomiting, diarrhea, bright red blood per rectum, melanotic stools, urinary frequency, urinary retention, dysuria, hematuria MSK: Muscle spasming/pain to the neck/right upper extremity Skin: Denies any rashes, lesions, discoloration Neuro: Denies any headache, lightheadedness, dizziness, fainting, weakness Psych: Denies SI/HI Patient History Medical History (Updated 12/10/24 @ 02:39 by Lucian Fontaine DO) Obesity (BMI 30.0-34.9) Osteopenia due to cancer therapy History of breast cancer Breast cancer White coat syndrome with high blood pressure but without hypertension Social History household members: spouse Smoking Status: Never smoker Smoking Status: Never smoker Exam Narrative Exam Narrative: General: Cooperative, comfortable, well-developed, not in acute distress HEENT: Normocephalic, atraumatic, PERRLA, normal sclera, eyelids normal, Neck: Active full range of motion, atraumatic Chest: Normal to inspection, negative crepitus, no overlying erythema ecchymosis Respiratory: Normal respiratory effort, not in acute respiratory distress, clear to auscultation bilaterally negative cough, wheeze, tachypnea, rhonchi, rales Cardiology: Regular rate rhythm negative gallop, murmur, rubs GI/: Normal to inspection, soft, nonrigid, no tenderness to palpation, exam deferred MSK: Full range of active range of motion of all 4 extremities, atraumatic, neurovascularly intact bilateral upper and lower extremities, there is no tenderness to palpation of the midline cervical spine but tenderness to palpation of the SCM and paraspinal muscles of the right and left side. Skin: No rashes lesions noted Neuro: Alert awake oriented x3, moves all 4 extremities spontaneously, cranial nerves intact, able to answer all questions appropriately follows commands appropriately Psych: Cooperative, negative suicidal or homicidal ideations Initial Vital Signs Initial Vital Signs: Vital Signs Temperature 98.1 F 12/09/24 18:51 Pulse Rate 72 12/09/24 18:51 Respiratory Rate 17 12/09/24 18:51 Blood Pressure 137/80 12/09/24 18:51 Pulse Oximetry 99 12/09/24 18:51 Oxygen Delivery Method Room Air 12/09/24 18:51 Course Orders Ordered: ED Orders 12/10/24 00:14 EKG-12 Lead Stat Discontinued Medications Acetaminophen (Acetaminophen 325 Mg Tablet) 650 mg PO NOW ONE Stop: 12/10/24 00:15 Last Admin: 12/10/24 00:23 Dose: 650 mg Documented By: Diazepam (Diazepam 5 Mg Tablet) 5 mg PO NOW ONE Stop: 12/10/24 00:15 Last Admin: 12/10/24 00:23 Dose: 5 mg Documented By: AB Prednisone (Prednisone 20 Mg Tablet) 40 mg PO NOW ONE Stop: 12/10/24 00:15 Last Admin: 12/10/24 00:23 Dose: 40 mg Documented By: Vital Signs Vital signs: Vital Signs - 8 hr 12/09/24 18:51 Temperature 98.1 F Pulse Rate 72 Respiratory Rate 17 Blood Pressure 137/80 Pulse Oximetry 99 Oxygen Delivery Method Room Air MDM - Neck Pain/Injury Differential Diagnosis Differential diagnosis: Likely other (ACS, muscle spasm) ECG Data Interpretation: EKG interpreted by ED physician sinus 63 beats per minute QTC [address] changes no STEMI MDM Narrative Medical decision making narrative: 74-year-old female with a history of muscle spasm presenting for the same, states that a few days ago she woke ?wrong states that she has been having muscle spasms to left and right neck and upper extremity but right side worse than left but denies any numbness weakness tingling to bilateral upper extremity denies any trauma or falls. Patient had EKG performed here nonischemic in nature was given Valium steroids with improvement of symptoms. Patient would like to be sent home with prescription of this and to follow up with her primary care doctor, she was given strict return precautions she verbalized understanding of this and agrees to being discharged home with outpatient follow up Discharge Plan Departure Patient Disposition: Home Clinical Impression: Muscle spasm Activity Restrictions/Additional Instructions: Please follow up with your primary care doctor Please read the discharge instructions sheet carefully and bring all papers to all doctor follow-up visits, as it may contain information that your doctor may want to see. Disease processes change and evolve, if your symptoms worsen or if you develop any new symptoms that are concerning to you please return for evaluation. Your evaluation today does not show any evidence of any life- threatening/serious illnesses requiring admission to the hospital or surgery. Please follow-up with your doctor for re-evaluation in approximately 1 day. Seek immediate medical attention for any worrisome symptoms. *If you do not have a primary care provider please contact the [facility] Resource line at [phone]. They will ask some questions about your medical history and help get you set up with a doctor in the community. Prescriptions: New diazepam [Valium] 5 mg tablet 5 mg PO BEDTIME PRN (Reason: muscle spasm) 5 Days Qty: 5 0RF prednisone 20 mg tablet 40 mg PO DAILY 5 Days Qty: 10 0RF No Action Ocuvite Adult 50 Plus 250 mg (90 mg-160 mg) capsule 1 cap PO DAILY calcium carbonate-vitamin D3 [Calcium + D] 600 mg-5 mcg (200 unit) Tablet 1 tab DAILY ascorbic acid (vitamin C) [Vitamin C] 500 mg Capsule, Extended Release 500 mg PO DAILY Fish Oil Capsule 1,000 mg PO DAILY Multivitamin Women 50 Plus 8 mg iron-400 mcg-300 mcg Tablet 1 tab PO DAILY Glucosamine Chondroitin 550-30-1 mg Capsule 1 cap PO DAILY travoprost [Travatan Z] 0.004 % drops 1 drp EYE-BOTH QPM timolol 0.5 % drops 1 drp EYE-BOTH QAM cyclosporine [Restasis] 0.05 % dropperette 1 drp EYE-BOTH BID Referrals: Rossy Bender MD [Primary Care Provider] - Stand Alone Forms: Patient Portal/API/Survey
[2024-12-10] MEDS: ACETAMINOPHEN 325 MG TABLET 650 MG PO (00:23)
[2024-12-10] MEDS: predniSONE 20 MG TABLET 40 MG PO (00:23)
[2024-12-10] MEDS: diazePAM 5 MG TABLET PO (00:23)
--- NOTE | 2024-12-10 01:43 | EKG_ITS ---
[address] [address] Test Date: 2024-12-10 Pat Name: Ariana Hammonds Department: [facility] Room: Gender: Female Evaluation Specialist: RONNIE : 1950 Requested By: Order Number: [id number] Reading MD: Alberto Swan Measurements Intervals [place] Rate: 62 P: 48 ND: 160 QRS: 46 QRSD: 82 T: 28 QT: 414 QTc: 420 Interpretive Statements Normal sinus rhythm Anterior infarct , age undetermined Electronically Signed On 12-10-2024 7:23:13 PST by Alberto Swan
[2024-12-10 04:39] VITALS: BP 146/71; PULSE 88; RESP 18; O2SAT 98
== END 2024-12-10 03:00 | disposition home or self-care (01) ==
PROVIDERS: Emergency Provider Student in an Organized Health Care Education/Training Program; PCP Family Medicine
DX: M62.838 Other muscle spasm (principal); Z85.3 Personal history of malignant neoplasm of breast
CPT/HCPCS: 93005; 99283